=== PATIENT | female | born 1975 | race Caucasian/White ===

== ENCOUNTER 2018-06-21 08:00 | Inpatient (IN) | payer MEDICAID ==
[2018-06-21] MEDS ORDERED: LORazepam 2 MG/ML VIAL ONE (08:59)
[2018-06-21] MEDS ORDERED: LORazepam 2 MG/ML VIAL IM ONE (09:00)
[2018-06-21] MEDS ORDERED: DiphenhydrAMINE HCL 50 MG/ML VIAL IM ONE (09:00)
[2018-06-21] MEDS ORDERED: HALOPERIDOL LACTATE 5 MG/ML VIAL IM ONE (09:00)
[2018-06-21] MEDS ORDERED: HALOPERIDOL LACTATE 5 MG/ML VIAL ONE ×2 (09:00)
[2018-06-21] MEDS ORDERED: DOCUSATE SODIUM 100 MG CAPSULE PO PRN (09:30)
[2018-06-21] MEDS ORDERED: MAGNESIUM HYDROXIDE SUSPENSION 30 ML UDCUP PO PRN (09:30)
[2018-06-21] MEDS ORDERED: ACETAMINOPHEN 325 MG TABLET PO PRN (09:30)
[2018-06-21] MEDS ORDERED: GuaiFENesin/D-METHORPHAN [SUGAR-FREE] 200-20MG/10 ML SYRUP UDCUP PO PRN (09:30)
[2018-06-21] MEDS ORDERED: CloNIDine HCL 0.1 MG TABLET PO PRN (09:30)
[2018-06-21] MEDS ORDERED: ALBUTEROL SULFATE HFA 90 MCG/PUFF 8 GM INHALER IH PRN (09:30)
[2018-06-21] MEDS ORDERED: MAG HYDROX/AL HYDROX/SIMETH ES 30 ML SUSPENSION UDCUP PO PRN (09:30)
[2018-06-21] MEDS ORDERED: LOPERAMIDE HCL 2 MG CAPSULE PO PRN (09:30)
[2018-06-21] MEDS ORDERED: ONDANSETRON HCL 4 MG TABLET PO PRN (09:30)
[2018-06-21] MEDS ORDERED: PETROLATUM,WHITE 28 GM JELLY TP PRN (09:30)
[2018-06-21] MEDS: NICOTINE 21 MG/24 HOUR PATCH TD SCH (10:32)
[2018-06-21] MEDS: HALOPERIDOL 5 MG TABLET PO PRN (14:06)
[2018-06-21] MEDS: LORazepam 2 MG TABLET PO PRN (14:06)
[2018-06-21 14:29] VITALS: BP 132/83
[2018-06-21 16:31] VITALS: BP 126/79
[2018-06-21 17:15] VITALS: BP 126/79
[2018-06-22 00:07] VITALS: BP 106/80
[2018-06-22] MEDS: ZOLPIDEM TARTRATE 10 MG TABLET PO PRN (00:16)
[2018-06-22] MEDS: IBUPROFEN 400 MG TABLET PO PRN (00:16)
[2018-06-22] MEDS: LORazepam 2 MG TABLET PO PRN ×3 (03:56→12:42)
[2018-06-22 08:00] VITALS: BP 125/77
[2018-06-22 08:28] LABS: BASOPHILS % (AUTO) 0.7 % (0.0-2.0); EOSINOPHILS % (AUTO) 0.5 % (1.0-6.0); HEMATOCRIT 41.3 % (36-46); HEMOGLOBIN 13.7 g/dL (12.0-16.0); LYMPHOCYTES # (AUTO) 1.5 K/uL (1.0-4.8); LYMPHOCYTES % (AUTO) 19.2 % (22.0-44.0); MEAN CORPUSCULAR HEMOGLOBIN 29.2 pg (26.0-34.0); MEAN CORPUSCULAR HGB CONC 33.2 G/dL (31.0-37.0); MEAN CORPUSCULAR VOLUME 88 fL (80-100); MONOCYTES # (AUTO) 0.4 K/uL (0.1-1.0); MONOCYTES % (AUTO) 5.1 % (2.0-9.0); NEUTROPHILS # (AUTO) 5.8 K/uL (1.8-7.7); NEUTROPHILS % (AUTO) 74.5 % (40.0-70.0); PLATELET COUNT (AUTO) 437 K/uL (150-450); RED BLOOD CELL COUNT(AUTO) 4.69 MIL/uL (4.00-5.20)
[2018-06-22] MEDS: HALOPERIDOL 5 MG TABLET PO PRN (08:41)
[2018-06-22] MEDS: NICOTINE 21 MG/24 HOUR PATCH TD SCH (08:41)
[2018-06-22 09:15] LABS: ALANINE AMINOTRANSFERASE 19 U/L (12-78); ALBUMIN 4.4 g/dL (3.4-5.0); ALKALINE PHOSPHATASE 90 U/L (46-116); ANION GAP 11 mmol/L (8-16); ASPARTATE AMINOTRANSFERASE 21 U/L (15-37); BILIRUBIN,TOTAL 0.6 mg/dL (0.1-1.0); CALCIUM, TOTAL 9.3 mg/dL (8.8-10.5); CARBON DIOXIDE 25 mmol/L (22-29); CHLORIDE 103 mmol/L (98-107); CHOL/HDL RATIO 2.9 (3.9-5.7); CHOLESTEROL 190 mg/dL (131-200); CREATININE 0.77 mg/dL (0.60-1.30); FREE T4 (FREE THYROXINE) 1.56 ng/dL (0.76-1.46); GLOMERULAR FILTR. RATE CALC > 60 mL/min (>60); GLUCOSE,RANDOM 99 mg/dL (70-110); HCG,QUANTITATIVE 5 mIU/mL (0-6); HDL CHOLESTEROL 65 mg/dL (40-60); LDL CHOL (CALC.) 110 mg/dL (0-130); POTASSIUM 3.9 mmol/L (3.5-5.1); SODIUM SERUM 139 mmol/L (136-145); THYROID STIMULATING HORMONE 0.36 uIU/mL (0.36-3.74); TOTAL PROTEIN, SERUM 7.8 g/dL (6.4-8.2); TRIGLYCERIDES 75 mg/dL (15-150); UREA NITROGEN, BLOOD 11 mg/dL (7-18)
[2018-06-22 09:22] LABS: HEMOGLOBIN A1C 5.8 % (4.5-6.2)
[2018-06-22] MEDS ORDERED: BACLOFEN 10 MG TABLET PO PRN (10:30)
[2018-06-22] MEDS: PARoxetine HCL 20 MG TABLET PO SCH (12:37)
[2018-06-22 17:30] VITALS: BP 100/56
[2018-06-22] MEDS: QUEtiapine FUMARATE 300 MG TABLET PO SCH (20:08)
[2018-06-22] MEDS: GABAPENTIN 300 MG CAPSULE PO SCH (20:08)
[2018-06-23 05:24] VITALS: BP 114/60
[2018-06-23] MEDS: IBUPROFEN 400 MG TABLET PO PRN (06:35)
[2018-06-23] MEDS: LORazepam 2 MG TABLET PO PRN ×3 (06:35→16:43)
[2018-06-23 08:16] VITALS: BP 109/71
[2018-06-23] MEDS: NICOTINE 21 MG/24 HOUR PATCH TD SCH (08:40)
[2018-06-23] MEDS: PARoxetine HCL 20 MG TABLET PO SCH (08:40)
[2018-06-23 16:29] VITALS: BP 101/52
[2018-06-23] MEDS: HALOPERIDOL 5 MG TABLET PO PRN (16:43)
[2018-06-23] MEDS: ZOLPIDEM TARTRATE 10 MG TABLET PO PRN (20:39)
[2018-06-23] MEDS: GABAPENTIN 300 MG CAPSULE PO SCH (20:39)
[2018-06-23] MEDS: QUEtiapine FUMARATE 300 MG TABLET PO SCH (20:39)
[2018-06-24 05:26] VITALS: BP 120/74
[2018-06-24] MEDS: LORazepam 2 MG TABLET PO PRN ×2 (06:10→10:35)
[2018-06-24] MEDS: IBUPROFEN 400 MG TABLET PO PRN (06:49)
[2018-06-24] MEDS ORDERED: QUET300T2 PO (08:15)
[2018-06-24] MEDS ORDERED: GABA-531 PO (08:15)
[2018-06-24] MEDS ORDERED: PARO20TA24 PO (08:15)
[2018-06-24] MEDS ORDERED: QUET300T18 PO (08:28)
[2018-06-24] MEDS ORDERED: PARO-37 PO (08:28)
[2018-06-24] MEDS: NICOTINE 21 MG/24 HOUR PATCH TD SCH (08:36)
[2018-06-24] MEDS: PARoxetine HCL 20 MG TABLET PO SCH (08:36)
== END 2018-06-24 11:15 | disposition home or self-care (01) | DRG 753 ==
LOC: B3A 08:30
DX: F31.5 Bipolar disorder, current episode depressed, severe, with psychotic features (principal); R45.851 Suicidal ideations; F12.10 Cannabis abuse, uncomplicated; G89.4 Chronic pain syndrome; M79.7 Fibromyalgia; M19.90 Unspecified osteoarthritis, unspecified site; F41.9 Anxiety disorder, unspecified; F19.10 Other psychoactive substance abuse, uncomplicated; Z71.51 Drug abuse counseling and surveillance of drug abuser; Z79.899 Other long term (current) drug therapy
CPT/HCPCS: 83036; 84439; 84443; J1200; J1630; J2060

== ENCOUNTER 2020-10-20 16:29 | Emergency (ER) | payer MEDICAID, OTHER ==
[~2020-10-20] VITALS: Ht 160 cm; Wt 63.6 kg
[~2020-10-20 16:29] MED LIST: PARO-37 PO; PARO-38 PO; QUET300T19 PO; QUET300T2 PO
[2020-10-20] MEDS ORDERED: PRAZ1 PO (16:51)
[2020-10-20] MEDS ORDERED: ZIPR80CA2 PO (16:51)
[2020-10-20] MEDS ORDERED: DULO60CA98 PO (16:51)
[2020-10-20] MEDS ORDERED: GABA-1181 PO (16:51)
[2020-10-20] MEDS ORDERED: CLON-598 PO (16:51)
[2020-10-20] MEDS ORDERED: LORazepam 1 MG TABLET PO ONE (17:30)
[2020-10-20] MEDS ORDERED: ACETAMINOPHEN 500 MG TABLET PO ONE (17:30)
[2020-10-20 19:12] VITALS: BP 95/61
== END 2020-10-20 21:54 | disposition home or self-care (01) ==
LOC: EMS 16:33
DX: M54.6 Pain in thoracic spine (principal); F41.9 Anxiety disorder, unspecified; F31.9 Bipolar disorder, unspecified; F17.210 Nicotine dependence, cigarettes, uncomplicated; F12.90 Cannabis use, unspecified, uncomplicated
CPT/HCPCS: 99283